=== PATIENT | male | born 1995 | race African-American/Black ===

== ENCOUNTER 2022-07-31 19:19 | Emergency (ER) | payer OTHER ==
[~2022-07-31] VITALS: Ht 172.7 cm; Wt 70.0 kg
[2022-07-31] MEDS ORDERED: PHENYTOIN SODIUM EXTENDED 100MG CAPSULE PO ONE (20:45)
[2022-07-31] MEDS ORDERED: LEVETIRACETAM 500MG PREMIX 100 ML IV ONE (20:45)
[2022-08-01 06:22] VITALS: BP 131/65
[2022-08-02] MEDS ORDERED: HYDR-4001 MT (22:47)
== END 2022-08-01 08:23 | disposition home or self-care (01) ==
LOC: EDBD 19:19 → ER 19:19
DX: S63.276A Dislocation of unspecified interphalangeal joint of right little finger, initial encounter (principal); R56.9 Unspecified convulsions; R41.82 Altered mental status, unspecified; X58.XXXA Exposure to other specified factors, initial encounter; Y93.89 Activity, other specified; Y92.9 Unspecified place or not applicable; Z91.199 Patient's noncompliance with other medical treatment and regimen due to unspecified reason
CPT/HCPCS: 70450; 73130; 96365; 99284; J1953

== ENCOUNTER 2022-08-02 11:52 | Emergency (ER) | payer OTHER ==
[~2022-08-02] VITALS: Ht 167.6 cm; Wt 77.0 kg
[2022-08-02 15:00] VITALS: BP 119/69
[2022-08-02] MEDS: HYDROCODONE/ACETAMINOPHEN 5/325MG TABLET PO ONE (15:00)
[2022-08-02] MEDS ORDERED: VANCOMYCIN 1G PREMIX 200 ML IV SCH ×2 (16:45→21:00)
[2022-08-02 17:01] LABS: BASOPHILS % 0.6 % (0.0-2.0); EOSINOPHILS % 0.7 % (0.0-5.0); HEMATOCRIT. 37.3 % (42.0-52.0); HEMOGLOBIN. 12.4 g/dL (14.0-18.0); LYMPHOCYTES % 13.9 % (20.0-50.0); MEAN CORPUSCULAR HEMOGLOBIN 29.1 pg (28.0-32.0); MEAN CORPUSCULAR VOLUME 87.7 fL (80.0-94.0); MONOCYTES % 10.5 % (2.0-8.0); NEUTROPHILS % 74.3 % (40.0-76.0); PLATELET 332 x1000/uL (130-400); RED BLOOD CELL COUNT 4.25 mill/uL (4.7-6.1)
[2022-08-02 17:11] LABS: PROTHROMBIN TIME 10.4 sec (9.6-11.0)
[2022-08-02 17:17] LABS: CHLORIDE 104 mEq/L (98-107)
[2022-08-02] MEDS: CEFTRIAXONE 1 G PREMIX 50 ML IV NR (18:29)
[2022-08-02] MEDS: VANCOMYCIN 1,000 MG in DEXT 5% WATER 250 ML IV NR (19:06)
[2022-08-02] MEDS: AMPICILLIN SOD/SULBACTAM NA 1.5 G in SODIUM CHLORIDE 0.9% 50 ML IV SCH (20:45)
[2022-08-02] MEDS ORDERED: IBUPROFEN 600MG TABLET PO SCH (20:45)
[2022-08-02] MEDS ORDERED: LIDOCAINE HCL 1% 20ML VIAL (Pyxis) INJ INFIL NR (21:00)
[2022-08-02] MEDS ORDERED: HYDR-4001 MT (22:47)
[2022-08-02] MEDS: HYDROCODONE/ACETAMINOPHEN 5/325MG TABLET PO PRN (23:44)
[2022-08-03] MEDS ORDERED: VANCOMYCIN 1G PREMIX 200 ML IV SCH (07:00)
== END 2022-08-03 01:55 | disposition home or self-care (01) ==
LOC: ER 11:52 → EDBEDREQ 16:38 → ER 08-03 01:55 → CANBEDREQ 08-03 08:08
DX: S62.614A Displaced fracture of proximal phalanx of right ring finger, initial encounter for closed fracture (principal); M65.9 Synovitis and tenosynovitis, unspecified; X58.XXXA Exposure to other specified factors, initial encounter; Y93.89 Activity, other specified; Y92.89 Other specified places as the place of occurrence of the external cause; Y99.8 Other external cause status; Z20.822 Contact with and (suspected) exposure to COVID-19
CPT/HCPCS: 36415; 73130; 80053; 85025; 85610; 87426; 96365; 96366; 96368; 99284; C9803; J0295; J0696; J3370; J7060

== ENCOUNTER 2022-11-05 03:57 | Emergency (ER) | payer MEDICAID, OTHER ==
[~2022-11-05] VITALS: Ht 170.2 cm; Wt 73.0 kg
[~2022-11-05 03:57] MED LIST: HYDR-4001 MT; KEPP500 MT
[2022-11-05] MEDS ORDERED: LEVETIRACETAM 1000MG PREMIX 100 ML IV ONE (04:30)
[2022-11-05] MEDS ORDERED: SODIUM CHLORIDE 0.9% 1,000 ML IV ONE (04:30)
[2022-11-05 04:54] LABS: BASOPHILS % 0.2 % (0.0-2.0); HEMATOCRIT. 39.5 % (42.0-52.0); HEMOGLOBIN. 13.4 g/dL (14.0-18.0); LYMPHOCYTES % 22.2 % (20.0-50.0); MEAN CORPUSCULAR HEMOGLOBIN 28.4 pg (28.0-32.0); MEAN CORPUSCULAR VOLUME 83.8 fL (80.0-94.0); MEAN PLATELET VOLUME 7.5 fl (7.4-10.4); MONOCYTES % 8.9 % (2.0-8.0); NEUTROPHILS % 67.7 % (40.0-76.0); PLATELET 290 x1000/uL (130-400); RED BLOOD CELL COUNT 4.71 mill/uL (4.7-6.1); RED CELL DISTRIBUTION WIDTH 17.7 % (11.6-14.6)
[2022-11-05 05:24] LABS: CHLORIDE 111 mEq/L (98-107)
[2022-11-05] MEDS ORDERED: PHEN100C4 MT (05:51)
[2022-11-05 06:00] VITALS: BP 122/78
[2022-11-05] MEDS ORDERED: PHENYTOIN SODIUM 500 MG in SODIUM CHLORIDE 0.9% 50 ML IV ONE (06:00)
== END 2022-11-05 06:25 | disposition home or self-care (01) ==
LOC: ER 03:57
DX: G40.909 Epilepsy, unspecified, not intractable, without status epilepticus (principal); R41.82 Altered mental status, unspecified; F31.9 Bipolar disorder, unspecified; F20.9 Schizophrenia, unspecified
CPT/HCPCS: 36415; 80053; 80185; 85025; 96365; 96367; 99284; J1165; J1953; J7030; Z7610

== ENCOUNTER 2023-02-10 13:44 | Inpatient (IN) | payer OTHER ==
[~2023-02-10] VITALS: Ht 170.2 cm; Wt 67.6 kg
[~2023-02-10 13:44] MED LIST changes: +PHEN100C4 MT
[2023-02-10 13:49] VITALS: O2SAT 100
[2023-02-10] MEDS ORDERED: SODIUM CHLORIDE 0.9% 1,000 ML IV ONE (14:45)
[2023-02-10] MEDS ORDERED: LORAZEPAM 2MG/ML CPJ IV ONE ×3 (14:45→18:45)
[2023-02-10] MEDS ORDERED: LEVETIRACETAM 500MG PREMIX 100 ML IV ONE (14:45)
[2023-02-10 15:11] LABS: CHLORIDE 108 mEq/L (98-107)
[2023-02-10] MEDS ORDERED: FLUORESCEIN SODIUM 1MG/STRIP BOTHEYE ONE (15:15)
[2023-02-10] MEDS ORDERED: TETRACAINE 0.5% OPHTH DROPS 4ML BOTHEYE ONE (15:15)
[2023-02-10 15:17] LABS: HEMATOCRIT. 50.3 % (42.0-52.0); HEMOGLOBIN. 16.8 g/dL (14.0-18.0); MEAN CORPUSCULAR HEMOGLOBIN 28.9 pg (28.0-32.0); MEAN CORPUSCULAR VOLUME 86.8 fL (80.0-94.0); MEAN PLATELET VOLUME 7.7 fl (7.4-10.4); PLATELET 364 x1000/uL (130-400); RED CELL DISTRIBUTION WIDTH 15.3 % (11.6-14.6)
[2023-02-10 15:18] LABS: ETHANOL BLOOD < 10 mg/dL (-10)
[2023-02-10] MEDS ORDERED: DEXTROSE 50% WATER 50ML SYRINGE IV ONE (16:15)
[2023-02-10] MEDS ORDERED: SODIUM CHLORIDE 0.9% 1000ML BAG (SEPSIS BOLUS) IV ONE (16:15)
[2023-02-10 16:59] LABS: *AMPHETAMINES SCREEN URINE PRESUMTIVE POSITIVE (NEGATIVE); *BARBITURATES SCREEN URINE NEGATIVE (NEGATIVE); *BENZODIAZEPINES SCREEN URINE NEGATIVE (NEGATIVE); *COCAINE SCREEN URINE NEGATIVE (NEGATIVE); CANNABINOID URINE SCREEN PRESUMTIVE POSITIVE (NEGATIVE); METHADONE URINE SCREEN NEGATIVE (NEGATIVE); OPIATES URINE SCREEN NEGATIVE (NEGATIVE); PHENCYCLIDINE URINE SCREEN NEGATIVE (NEGATIVE)
[2023-02-10] MEDS ORDERED: VANCOMYCIN 1G PREMIX 200 ML IV ONE (17:30)
[2023-02-10] MEDS ORDERED: PIPERACILLIN/TAZ 3.375G PREMIX 50 ML IV ONE (17:30)
[2023-02-10] MEDS ORDERED: PHENYTOIN SODIUM 1,000 MG in SODIUM CHLORIDE 0.9% 100 ML IV ONE (17:45)
[2023-02-10 17:50] LABS: CLARITY URINE TURBID (CLEAR); COLOR URINE YELLOW (YELLOW); KETONES URINE NEGATIVE (NEGATIVE); LEUKOCYTE ESTERASE URINE NEGATIVE (NEGATIVE); NITRITE URINE NEGATIVE (NEGATIVE); OCCULT BLOOD URINE 2+ (NEGATIVE); PH URINE 5.5 (4.5-8.0); PROTEIN URINE 1+ (NEGATIVE); UROBILINOGEN URINE 0.2 E.U./dL (0.2-1.0)
[2023-02-10 18:31] LABS: PLATELET ESTIMATE NORMAL
[2023-02-11] VITALS (12 sets, daily range): BP systolic 117–138; BP diastolic 45–86; PULSE 36–106; RESP 11–19; TEMP 97.5–99.1
[2023-02-11] MEDS: SODIUM CHLORIDE 0.9% 1,000 ML IV SCH ×3 (03:37→23:23)
[2023-02-11] MEDS: LORAZEPAM 2MG/ML CPJ IV PRN ×2 (04:00→10:36)
[2023-02-11] MEDS: PIPERACILLIN/TAZOBACTAM 3.375 G in DEXTROSE 5% WATER 50 ML IV SCH ×3 (05:51→22:46)
[2023-02-11] MEDS ORDERED: LORAZEPAM 2MG/ML CPJ IV NR (06:30)
[2023-02-11 08:27] LABS: BASOPHILS % 0.4 % (0.0-2.0); HEMATOCRIT. 42.6 % (42.0-52.0); HEMOGLOBIN. 14.2 g/dL (14.0-18.0); MEAN CORPUSCULAR HEMOGLOBIN 28.9 pg (28.0-32.0); MEAN CORPUSCULAR VOLUME 86.3 fL (80.0-94.0); MEAN PLATELET VOLUME 7.5 fl (7.4-10.4); MONOCYTES % 8.1 % (2.0-8.0); NEUTROPHILS % 83.5 % (40.0-76.0); PLATELET 320 x1000/uL (130-400); RED BLOOD CELL COUNT 4.93 mill/uL (4.7-6.1); RED CELL DISTRIBUTION WIDTH 15.5 % (11.6-14.6)
[2023-02-11 08:37] LABS: CHLORIDE 113 mEq/L (98-107)
[2023-02-11] MEDS ORDERED: LEVETIRACETAM 500MG PREMIX 100 ML IV SCH ×2 (09:00→21:00)
[2023-02-11] MEDS: VANCOMYCIN 1G PREMIX 200 ML IV SCH ×2 (09:16→22:46)
[2023-02-11] MEDS ORDERED: IPRATROPIUM/ALBUTEROL 0.5-3(2.5)MG/3ML NEB HHN PRN (13:15)
[2023-02-11] MEDS ORDERED: QUET50TA PO (13:41)
[2023-02-11] MEDS ORDERED: LAMO200T9 PO (13:42)
[2023-02-11] MEDS ORDERED: GABA-290 MT (13:42)
[2023-02-11] MEDS ORDERED: NALOXONE HCL 0.4MG/ML VIAL IV PRN (16:00)
[2023-02-11] MEDS: HYDROCODONE/ACETAMINOPHEN 5/325MG TABLET PO PRN ×2 (16:03→23:15)
[2023-02-12] MEDS: PIPERACILLIN/TAZOBACTAM 3.375 G in DEXTROSE 5% WATER 50 ML IV SCH (04:59)
[2023-02-12 06:24] LABS: BASOPHILS % 0.6 % (0.0-2.0); EOSINOPHILS % 0.9 % (0.0-5.0); HEMATOCRIT. 39.5 % (42.0-52.0); HEMOGLOBIN. 13.3 g/dL (14.0-18.0); LYMPHOCYTES % 19.7 % (20.0-50.0); MEAN CORPUSCULAR HEMOGLOBIN 29.3 pg (28.0-32.0); MEAN CORPUSCULAR VOLUME 86.8 fL (80.0-94.0); MEAN PLATELET VOLUME 7.4 fl (7.4-10.4); MONOCYTES % 13.1 % (2.0-8.0); NEUTROPHILS % 65.7 % (40.0-76.0); PLATELET 286 x1000/uL (130-400); RED BLOOD CELL COUNT 4.55 mill/uL (4.7-6.1); RED CELL DISTRIBUTION WIDTH 15.2 % (11.6-14.6)
[2023-02-12 06:40] LABS: CHLORIDE 106 mEq/L (98-107)
== END 2023-02-12 07:40 | disposition left against medical advice (07) | DRG 720 ==
LOC: ER 13:44 → MICUSO 21:19 → EDBEDREQ 21:23 → EDBEDREQTM 21:23 → 5EST 02-11 01:54
PROVIDERS: ADMIT Internal Medicine; ATTEND Internal Medicine
DX: A41.9 Sepsis, unspecified organism (principal); J69.0 Pneumonitis due to inhalation of food and vomit; G92.9 Unspecified toxic encephalopathy; G40.901 Epilepsy, unspecified, not intractable, with status epilepticus; E87.20 Acidosis, unspecified; J68.0 Bronchitis and pneumonitis due to chemicals, gases, fumes and vapors; F15.10 Other stimulant abuse, uncomplicated; Z53.29 Procedure and treatment not carried out because of patient's decision for other reasons; F12.10 Cannabis abuse, uncomplicated; Z20.822 Contact with and (suspected) exposure to COVID-19; F20.9 Schizophrenia, unspecified; F31.9 Bipolar disorder, unspecified; Z79.891 Long term (current) use of opiate analgesic; Z79.899 Other long term (current) drug therapy; Z78.1 Physical restraint status
CPT/HCPCS: 36415; 70486; 71045; 80048; 80053; 80185; 80202; 80305; 80320; 81003; 82962; 83605; 84484; 85025; 87426; 99291; C9803; J1165; J1953; J2060; J2543; J3370; J7030; J7050; J7060; G0480

== ENCOUNTER 2023-02-14 12:46 | Emergency (ER) | payer OTHER ==
[~2023-02-14] VITALS: Ht 175.3 cm; Wt 76.0 kg
[~2023-02-14 12:46] MED LIST changes: +GABA-290 MT; +LAMO200T9 PO; +QUET50TA PO
[2023-02-14 12:49] VITALS: O2SAT 99
[2023-02-14] MEDS ORDERED: LEVETIRACETAM 1000MG PREMIX 100 ML IV ONE (13:15)
[2023-02-14 13:24] LABS: HEMATOCRIT. 42.9 % (42.0-52.0); HEMOGLOBIN. 14.9 g/dL (14.0-18.0); MEAN CORPUSCULAR VOLUME 86.4 fL (80.0-94.0); MEAN PLATELET VOLUME 7.7 fl (7.4-10.4); PLATELET 321 x1000/uL (130-400); RED BLOOD CELL COUNT 4.96 mill/uL (4.7-6.1)
[2023-02-14 13:44] LABS: CHLORIDE 106 mEq/L (98-107)
[2023-02-14 14:45] LABS: NUCLEATED RED BLOOD CELLS 1 /100 WBC
[2023-02-14 14:46] LABS: PLATELET ESTIMATE NORMAL
[2023-02-14] MEDS ORDERED: ACETAMINOPHEN 325MG TABLET PO ONE (16:15)
[2023-02-14 17:13] VITALS: BP 130/75; PULSE 84; RESP 18; TEMP 99.8
== END 2023-02-14 17:17 | disposition home or self-care (01) ==
LOC: ER 12:46
DX: R56.9 Unspecified convulsions (principal); Z98.890 Other specified postprocedural states
CPT/HCPCS: 80053; 85025; 36415; 70450; 96365; 99285; J1953; Z7610

== ENCOUNTER 2023-02-18 20:02 | Emergency (ER) | payer OTHER ==
[~2023-02-18] VITALS: Ht 167.6 cm; Wt 70.0 kg
[2023-02-18 21:04] LABS: BASOPHILS % 0.8 % (0.0-2.0); EOSINOPHILS % 0.1 % (0.0-5.0); HEMATOCRIT. 37.8 % (42.0-52.0); HEMOGLOBIN. 12.4 g/dL (14.0-18.0); LYMPHOCYTES % 13.7 % (20.0-50.0); MEAN CORPUSCULAR HEMOGLOBIN 28.3 pg (28.0-32.0); MEAN CORPUSCULAR VOLUME 86.2 fL (80.0-94.0); MEAN PLATELET VOLUME 7.7 fl (7.4-10.4); MONOCYTES % 11.2 % (2.0-8.0); NEUTROPHILS % 74.2 % (40.0-76.0); PLATELET 343 x1000/uL (130-400); RED BLOOD CELL COUNT 4.38 mill/uL (4.7-6.1); RED CELL DISTRIBUTION WIDTH 15.1 % (11.6-14.6)
[2023-02-18 21:05] LABS: CLARITY URINE CLEAR (CLEAR); COLOR URINE YELLOW (YELLOW); KETONES URINE NEGATIVE (NEGATIVE); LEUKOCYTE ESTERASE URINE NEGATIVE (NEGATIVE); NITRITE URINE NEGATIVE (NEGATIVE); OCCULT BLOOD URINE NEGATIVE (NEGATIVE); PH URINE 6.5 (4.5-8.0); PROTEIN URINE 2+ (NEGATIVE); SPECIFIC GRAVITY URINE 1.009 (1.005-1.030); UROBILINOGEN URINE 0.2 E.U./dL (0.2-1.0)
[2023-02-18 21:11] LABS: CHLORIDE 105 mEq/L (98-107)
[2023-02-18 21:15] LABS: ETHANOL BLOOD < 10 mg/dL (-10)
[2023-02-18 21:32] LABS: *AMPHETAMINES SCREEN URINE NEGATIVE (NEGATIVE); *BARBITURATES SCREEN URINE NEGATIVE (NEGATIVE); *BENZODIAZEPINES SCREEN URINE NEGATIVE (NEGATIVE); *COCAINE SCREEN URINE NEGATIVE (NEGATIVE); CANNABINOID URINE SCREEN PRESUMTIVE POSITIVE (NEGATIVE); METHADONE URINE SCREEN NEGATIVE (NEGATIVE); OPIATES URINE SCREEN NEGATIVE (NEGATIVE); PHENCYCLIDINE URINE SCREEN NEGATIVE (NEGATIVE)
[2023-02-18] MEDS ORDERED: HALOPERIDOL LACTATE 5MG/ML VIAL IM ONE (21:45)
[2023-02-18] MEDS ORDERED: LORAZEPAM 2MG/ML CPJ IM ONE ×2 (21:45→22:00)
[2023-02-18] MEDS ORDERED: DIPHENHYDRAMINE 50MG/ML VIAL IM ONE (22:00)
[2023-02-18 22:04] VITALS: O2SAT 98
[2023-02-18] MEDS ORDERED: POTASSIUM CHLORIDE 20MEQ TABLET SR PO ONE (23:30)
[2023-02-18] MEDS ORDERED: MAGNESIUM OXIDE 400MG TABLET PO SCH (23:30)
[2023-02-19] MEDS ORDERED: LEVETIRACETAM 500MG TABLET PO STA (01:24)
[2023-02-19] MEDS ORDERED: POTASSIUM CHLORIDE 20MEQ TABLET SR PO NR (04:45)
[2023-02-19] MEDS ORDERED: LEVETIRACETAM 500MG TABLET PO NR (04:45)
[2023-02-19] MEDS ORDERED: HALOPERIDOL LACTATE 5MG/ML VIAL IM ONE (08:15)
[2023-02-19] MEDS ORDERED: LORAZEPAM 2MG/ML CPJ IM ONE (08:15)
[2023-02-19 09:45] VITALS: TEMP 98.1
[2023-02-19] MEDS ORDERED: AMLODIPINE 5MG TABLET PO ONE (16:30)
[2023-02-19 16:34] VITALS: BP 152/107; PULSE 87; RESP 16
[2023-02-20] MEDS ORDERED: MAGNESIUM OXIDE 400MG TABLET PO SCH (09:00)
== END 2023-02-19 16:34 ==
LOC: ER 20:02
DX: R45.850 Homicidal ideations (principal); F31.9 Bipolar disorder, unspecified; F20.9 Schizophrenia, unspecified; Z79.899 Other long term (current) drug therapy; Z20.822 Contact with and (suspected) exposure to COVID-19
CPT/HCPCS: 80053; 80305; 81003; 80307; 80329; 80320; 85025; 36415; 96372 ×2; 99285; 87426; J1200; J1630 ×2; J2060 ×2; C9803; Z7610 ×3; G0480

== ENCOUNTER 2023-03-17 21:53 | Emergency (ER) | payer OTHER ==
[~2023-03-17] VITALS: Ht 175.3 cm; Wt 74.0 kg
[2023-03-17 21:59] VITALS: O2SAT 98
[2023-03-17 23:32] LABS: BASOPHILS % 0.3 % (0.0-2.0); EOSINOPHILS % 2.7 % (0.0-5.0); HEMATOCRIT. 36.6 % (42.0-52.0); HEMOGLOBIN. 12.6 g/dL (14.0-18.0); LYMPHOCYTES % 30.3 % (20.0-50.0); MEAN CORPUSCULAR HEMOGLOBIN 29.8 pg (28.0-32.0); MEAN CORPUSCULAR VOLUME 86.6 fL (80.0-94.0); MEAN PLATELET VOLUME 7.1 fl (7.4-10.4); MONOCYTES % 9.9 % (2.0-8.0); NEUTROPHILS % 56.8 % (40.0-76.0); PLATELET 305 x1000/uL (130-400); RED BLOOD CELL COUNT 4.22 mill/uL (4.7-6.1); RED CELL DISTRIBUTION WIDTH 15.9 % (11.6-14.6)
[2023-03-17 23:40] LABS: CHLORIDE 106 mEq/L (98-107)
[2023-03-18] MEDS ORDERED: LORAZEPAM 2MG/ML CPJ IV ONE (04:15)
[2023-03-18 04:26] LABS: EOSINOPHILS % 2.7 % (0.0-5.0); HEMATOCRIT. 36.2 % (42.0-52.0); HEMOGLOBIN. 12.1 g/dL (14.0-18.0); LYMPHOCYTES % 29.2 % (20.0-50.0); MEAN CORPUSCULAR HEMOGLOBIN 29.1 pg (28.0-32.0); MEAN CORPUSCULAR VOLUME 86.7 fL (80.0-94.0); MONOCYTES % 9.7 % (2.0-8.0); NEUTROPHILS % 57.4 % (40.0-76.0); PLATELET 279 x1000/uL (130-400); RED BLOOD CELL COUNT 4.17 mill/uL (4.7-6.1); RED CELL DISTRIBUTION WIDTH 15.7 % (11.6-14.6)
[2023-03-18 04:53] LABS: CHLORIDE 107 mEq/L (98-107)
[2023-03-18] MEDS ORDERED: LEVETIRACETAM 500MG PREMIX 100 ML IV ONE (05:30)
[2023-03-18] MEDS ORDERED: LEVETIRACETAM 500MG PREMIX 100 ML IV NR (10:44)
[2023-03-18] MEDS ORDERED: IBUP-2029 MT (11:06)
[2023-03-18] MEDS ORDERED: LEVE750T4 MT (11:06)
[2023-03-18 12:05] VITALS: BP 107/57; PULSE 83; RESP 15; TEMP 97.9
== END 2023-03-18 12:18 | disposition home or self-care (01) ==
LOC: ER 21:53
DX: G40.909 Epilepsy, unspecified, not intractable, without status epilepticus (principal); M25.511 Pain in right shoulder; F12.10 Cannabis abuse, uncomplicated; F15.10 Other stimulant abuse, uncomplicated; Z79.899 Other long term (current) drug therapy
CPT/HCPCS: 80053 ×2; 85025 ×2; 36415 ×2; 93005; 99285; 80185; 83880; 71045; 73030; 73060; 82542; Z7610